=== PATIENT | male | born 1955 | race Caucasian/White ===

== ENCOUNTER 2020-10-14 13:31 | Inpatient (IN) | payer OTHER ==
[2020-10-14] MEDS ORDERED: LORazepam 2 MG/ML SDV VIAL ONE (13:46)
[2020-10-14 14:38] LABS: BASO % 0.2 % (0-2.0); EOS % 7.6 % (0-4.5); HEMATOCRIT 23.1 % (35.4-49); LYMPH % 6.4 % (8-40); MCH 23.2 pg (25.7-33.7); MCHC 30.3 g/dl (32.0-35.9); MEAN CELL VOLUME 76.6 fl (80-96); MEAN PLT VOLUME 7.3 fl (7.5-11.1); NEUT % 76.8 % (42.8-82.8); PLATELET COUNT 265 K/MM3 (134-434); RBC 3.02 M/mm3 (4.00-5.60); RDW 20.8 % (11.9-15.9); WHITE BLOOD COUNT 12.4 K/mm3 (4.0-10.0)
[2020-10-14 15:04] LABS: CHLORIDE 103 mmol/L (98-107); POTASSIUM 3.2 mmol/L (3.5-5.1); SODIUM 138 mmol/L (136-145)
[2020-10-14 15:06] LABS: CALCIUM 9.6 mg/dL (8.5-10.1)
[2020-10-14 15:07] LABS: ALBUMIN 2.2 g/dl (3.4-5.0); ANION GAP 6 MMOL/L (8-16); BLOOD UREA NITROGEN 60.2 mg/dL (7-18); CO2 29 mmol/L (21-32); GLUCOSE,RANDOM 140 mg/dL (74-106)
[2020-10-14 15:10] LABS: CREATININE 2.4 mg/dL (0.55-1.3); SGOT/AST 22 U/L (15-37); SGPT/ALT 30 U/L (13-61)
[2020-10-14 15:11] LABS: BILIRUBIN,TOTAL 0.5 mg/dL (0.2-1); TOT PROT 6.6 g/dl (6.4-8.2)
[2020-10-14 15:13] LABS: ALK PHOS 175 U/L (45-117)
[2020-10-14] MEDS ORDERED: CEFEPIME HCL/D5W 2 GM/50 ML BAG IVPB ONE (15:54)
[2020-10-14] MEDS ORDERED: VANCOMYCIN 1 GM in D5W (PRE-DOCKED) 1,000 MG/250 ML IVPB ONE (15:54)
[2020-10-14] MEDS ORDERED: VANCOMYCIN 1 GRAM (PRE-DOCKED) 1,000 MG/250 ML BAG IVPB ONE (16:08)
[2020-10-14] MEDS ORDERED: CEFEPIME 2 GM/100 ML BAG IVPB ONE (16:47)
[2020-10-14 16:53] LABS: ANISOCYTOSIS 2+; MACROCYTOSIS 0; PLATELET ESTIMATE NORMAL
[2020-10-14 17:24] LABS: EPI CELLS >36 /uL (0-25.1); HYALINE CASTS 5 /uL (0-3.1); URINE APPEARANCE TURBID; URINE BACTERIA 755 /uL (0-1359); URINE BILIRUBIN NEGATIVE (NEGATIVE); URINE COLOR YELLOW; URINE GLUCOSE (UA) NEGATIVE (NEGATIVE); URINE KETONE NEGATIVE (NEGATIVE); URINE LEUK ESTERASE 3+ (NEGATIVE); URINE NITRITE NEGATIVE (NEGATIVE); URINE PROTEIN 1+ (NEGATIVE); URINE RBC 12 /uL (0-23.9); URINE UROBILINOGEN 0.2 mg/dL (0.2-1.0); URINE WBC 4778 /uL (0-25.8)
[2020-10-14] MEDS ORDERED: LORazepam 2 MG/ML SDV VIAL IVPUSH ONE ×2 (17:33→23:45)
[2020-10-14 17:34] LABS: COCAINE, UR NEGATIVE ng/ml (CUTOFF=300)
[2020-10-14 17:35] LABS: METHADONE, UR NEGATIVE ng/ml (CUTOFF=300); OPIATES, URI NEGATIVE ng/ml (CUTOFF=300); PHENCYCLIDINE,URINE NEGATIVE ng/ml (CUTOFF=25)
[2020-10-14 17:45] LABS: URINE AMPHETAMINES NEGATIVE ng/ml (CUTOFF=500); URINE BARBITURATES NEGATIVE ng/ml (CUTOFF=200)
[2020-10-14 17:46] LABS: URINE BENZODIAZEPINES POSITIVE ng/ml (CUTOFF=200)
[2020-10-14 19:03] LABS: INR 1.28 (0.83-1.09); PROTHROMBIN TIME (PATIENT) 15.6 SEC (9.7-13.0)
[2020-10-14 19:06] LABS: ACTIVATED PTT 26.9 SECONDS (25.2-36.5)
[2020-10-14 19:19] LABS: URINE CRYSTALS CALCIUM OXALATE /hpf; YEAST PRESENT (NEGATIVE)
[2020-10-14] MEDS: SODIUM CHLORIDE 1,000 ML IV SCH (19:56)
[2020-10-14] MEDS ORDERED: ACETAMINOPHEN 1000 MG/100 ML VIAL (NON FORMULARY) IVPB PRN (21:07)
[2020-10-14] MEDS ORDERED: POTASSIUM CHLORIDE 20 MEQ PREMIX IVPB 100 ML IVPB ONE (21:10)
[2020-10-14] MEDS: VALPROATE SODIUM 500 MG/5 ML VIAL IVPB SCH (23:20)
[2020-10-15] MEDS ORDERED: diazePAM RECTAL GEL 10 MG KIT (PRE-CALIBRATED) RC ONE (00:35)
[2020-10-15] MEDS ORDERED: MIDAZOLAM IN 0.9 % SOD.CHLORID 100 MG/100 ML PLAST..BAG IVPB SCH (01:00)
[2020-10-15] MEDS ORDERED: ASPIRIN 325 MG TABLET PO ONE (01:00)
[2020-10-15] MEDS ORDERED: MIDAZOLAM 100 MG/100 ML MG IVPB ONE (01:02)
[2020-10-15] MEDS ORDERED: ASPIRIN 300 MG SUPP.RECT PR ONE (01:12)
[2020-10-15] MEDS: KCL 10 MEQ IVPB 10 MEQ/100 ML INFUS.BAG IVPB SCH ×3 (01:47→04:41)
[2020-10-15] MEDS ORDERED: MIDAZOLAM 100 MG/100 ML MG IVPB SCH (01:49)
[2020-10-15 02:00] LABS: BASO % 0.4 % (0-2.0); EOS % 8.9 % (0-4.5); HEMATOCRIT 23.2 % (35.4-49); LYMPH % 8.7 % (8-40); MCH 22.9 pg (25.7-33.7); MCHC 30.1 g/dl (32.0-35.9); MEAN CELL VOLUME 76.2 fl (80-96); MEAN PLT VOLUME 7.5 fl (7.5-11.1); PLATELET COUNT 278 K/MM3 (134-434); RBC 3.05 M/mm3 (4.00-5.60); RDW 20.9 % (11.9-15.9); WHITE BLOOD COUNT 14.5 K/mm3 (4.0-10.0)
[2020-10-15 07:48] LABS: BASO % 0.5 % (0-2.0); EOS % 9.9 % (0-4.5); HEMATOCRIT 24.2 % (35.4-49); HEMOGLOBIN 7.4 GM/dL (11.7-16.9); LYMPH % 8.6 % (8-40); MCH 23.2 pg (25.7-33.7); MCHC 30.6 g/dl (32.0-35.9); MEAN CELL VOLUME 75.7 fl (80-96); MEAN PLT VOLUME 7.4 fl (7.5-11.1); MONO % 7.7 % (3.8-10.2); NEUT % 73.3 % (42.8-82.8); PLATELET COUNT 290 K/MM3 (134-434); RDW 21.1 % (11.9-15.9)
[2020-10-15 09:15] LABS: POTASSIUM 3.8 mmol/L (3.5-5.1)
[2020-10-15 09:17] LABS: ALBUMIN 2.3 g/dl (3.4-5.0); CALCIUM 10.1 mg/dL (8.5-10.1)
[2020-10-15 09:18] LABS: BLOOD UREA NITROGEN 64.1 mg/dL (7-18); MAGNESIUM 2.1 mg/dL (1.8-2.4)
[2020-10-15 09:21] LABS: CREATININE 2.4 mg/dL (0.55-1.3)
[2020-10-15 09:22] LABS: BILIRUBIN,TOTAL 0.6 mg/dL (0.2-1); TOT PROT 6.7 g/dl (6.4-8.2)
[2020-10-15] MEDS ORDERED: DIVALPROEX SODIUM 500 MG TABLET E.C. PO SCH (12:00)
[2020-10-15] MEDS ORDERED: DIVALPROEX SODIUM 125 MG SPRINKLE CAPS PEG SCH (12:00)
[2020-10-15] MEDS: MUPIROCIN 2% TOPICAL OINTMENT FOR DECOLONIZATION NS SCH ×2 (12:29→22:48)
[2020-10-15] MEDS: VALPROATE SODIUM 250 MG/5 ML UNIT DOSE CUP PEG SCH ×2 (12:29→23:01)
[2020-10-15] MEDS: VALPROATE SODIUM 500 MG/5 ML VIAL IVPB SCH (12:59)
[2020-10-15] MEDS ORDERED: LORazepam 2 MG/ML SDV VIAL ONE (13:42)
[2020-10-15] MEDS ORDERED: LORazepam 2 MG/ML SDV VIAL IVPUSH ONE ×2 (14:21→21:46)
[2020-10-15] MEDS: CEFEPIME 2 GM in DEXTROSE 5%-WATER 2 GM/100 ML BAG IVPB SCH (15:25)
[2020-10-15] MEDS: SODIUM CHLORIDE 1,000 ML IV SCH (20:32)
[2020-10-15] MEDS: CHLORHEXIDINE GLUCONATE 4% CLEANSER FOR DECOLONIZATION TP SCH (22:48)
[2020-10-15] MEDS: Lacosamide 200 MG/20 ML VIAL IVPB SCH (22:48)
[2020-10-16] MEDS ORDERED: VANCOMYCIN 1 GM in D5W (PRE-DOCKED) 1,000 MG/250 ML IVPB ONE (02:07)
[2020-10-16] MEDS ORDERED: LORazepam 2 MG/ML SDV VIAL IVPUSH ONE (06:14)
[2020-10-16 07:34] LABS: BASO % 0.7 % (0-2.0); EOS % 14.3 % (0-4.5); HEMATOCRIT 23.2 % (35.4-49); HEMOGLOBIN 7.1 GM/dL (11.7-16.9); LYMPH % 9.7 % (8-40); MCHC 30.6 g/dl (32.0-35.9); MEAN CELL VOLUME 75.2 fl (80-96); MEAN PLT VOLUME 7.4 fl (7.5-11.1); MONO % 6.6 % (3.8-10.2); NEUT % 68.7 % (42.8-82.8); PLATELET COUNT 307 K/MM3 (134-434); RBC 3.08 M/mm3 (4.00-5.60); RDW 20.8 % (11.9-15.9); WHITE BLOOD COUNT 12.5 K/mm3 (4.0-10.0)
[2020-10-16 07:50] LABS: POTASSIUM 3.9 mmol/L (3.5-5.1)
[2020-10-16 08:08] LABS: ALBUMIN 2.2 g/dl (3.4-5.0); BLOOD UREA NITROGEN 66.3 mg/dL (7-18); CALCIUM 9.8 mg/dL (8.5-10.1); MAGNESIUM 2.1 mg/dL (1.8-2.4)
[2020-10-16 08:11] LABS: CREATININE 2.4 mg/dL (0.55-1.3)
[2020-10-16 08:12] LABS: PHOSPHOROUS 3.7 mg/dL (2.5-4.9)
[2020-10-16 08:13] LABS: BILIRUBIN,TOTAL 0.9 mg/dL (0.2-1); TOT PROT 6.8 g/dl (6.4-8.2)
[2020-10-16] MEDS ORDERED: PT OWN MED DRAWER 7, Y5N ONE ×2 (09:39→21:44)
[2020-10-16] MEDS: MUPIROCIN 2% TOPICAL OINTMENT FOR DECOLONIZATION NS SCH ×2 (09:40→21:46)
[2020-10-16] MEDS: VALPROATE SODIUM 250 MG/5 ML UNIT DOSE CUP PEG SCH ×2 (09:41→22:53)
[2020-10-16] MEDS: CEFEPIME 2 GM in DEXTROSE 5%-WATER 2 GM/100 ML BAG IVPB SCH (09:41)
[2020-10-16] MEDS: Lacosamide 200 MG/20 ML VIAL IVPB SCH ×2 (09:45→21:46)
[2020-10-16] MEDS: CHLORHEXIDINE GLUCONATE 4% CLEANSER FOR DECOLONIZATION TP SCH (21:46)
[2020-10-16] MEDS: NYSTATIN 100,000 UNIT/GM TOPICAL CREAM 15 GM TUBE TP SCH (21:46)
[2020-10-17] MEDS ORDERED: PT OWN MED DRAWER 7, Y5N ONE ×2 (04:16→10:58)
[2020-10-17 06:52] LABS: HEMATOCRIT 23.6 % (35.4-49); HEMOGLOBIN 7.2 GM/dL (11.7-16.9); MCH 23.1 pg (25.7-33.7); MCHC 30.6 g/dl (32.0-35.9); MEAN CELL VOLUME 75.4 fl (80-96); MEAN PLT VOLUME 7.4 fl (7.5-11.1); PLATELET COUNT 300 K/MM3 (134-434); RBC 3.12 M/mm3 (4.00-5.60); RDW 20.7 % (11.9-15.9); WHITE BLOOD COUNT 11.3 K/mm3 (4.0-10.0)
[2020-10-17 07:15] LABS: POTASSIUM 3.8 mmol/L (3.5-5.1)
[2020-10-17 07:23] LABS: CALCIUM 9.8 mg/dL (8.5-10.1)
[2020-10-17 07:24] LABS: ALBUMIN 2.2 g/dl (3.4-5.0); BLOOD UREA NITROGEN 63.3 mg/dL (7-18)
[2020-10-17 07:27] LABS: CREATININE 2.4 mg/dL (0.55-1.3)
[2020-10-17 07:28] LABS: BILIRUBIN,TOTAL 0.9 mg/dL (0.2-1)
[2020-10-17 07:29] LABS: TOT PROT 6.9 g/dl (6.4-8.2)
[2020-10-17] MEDS: CEFEPIME 2 GM in DEXTROSE 5%-WATER 2 GM/100 ML BAG IVPB SCH (11:15)
[2020-10-17] MEDS: NYSTATIN 100,000 UNIT/GM TOPICAL CREAM 15 GM TUBE TP SCH ×2 (11:15→21:51)
[2020-10-17] MEDS: MUPIROCIN 2% TOPICAL OINTMENT FOR DECOLONIZATION NS SCH ×2 (11:18→21:51)
[2020-10-17] MEDS: Lacosamide 200 MG/20 ML VIAL IVPB SCH ×2 (11:18→21:51)
[2020-10-17] MEDS: VALPROATE SODIUM 250 MG/5 ML UNIT DOSE CUP PEG SCH ×2 (11:19→21:51)
[2020-10-17] MEDS ORDERED: LORazepam 2 MG/ML SDV VIAL ONE ×3 (12:07→19:21)
[2020-10-17] MEDS ORDERED: LORazepam 2 MG/ML SDV VIAL IVPUSH ONE ×2 (13:17→19:55)
[2020-10-17] MEDS ORDERED: ACETAMINOPHEN 1000 MG/100 ML VIAL (NON FORMULARY) IVPB ONE (19:29)
[2020-10-17] MEDS: CHLORHEXIDINE GLUCONATE 4% CLEANSER FOR DECOLONIZATION TP SCH (21:51)
[2020-10-17] MEDS: COLLAGENASE CLOSTRIDIUM HIST. 30 GRAMS TUBE TP PRN (21:51)
[2020-10-18 07:00] LABS: BASO % 0.1 % (0-2.0); EOS % 7.5 % (0-4.5); HEMATOCRIT 22.7 % (35.4-49); LYMPH % 6.2 % (8-40); MCH 22.9 pg (25.7-33.7); MCHC 30.2 g/dl (32.0-35.9); MEAN PLT VOLUME 7.6 fl (7.5-11.1); MONO % 6.7 % (3.8-10.2); NEUT % 79.5 % (42.8-82.8); PLATELET COUNT 264 K/MM3 (134-434); RBC 2.99 M/mm3 (4.00-5.60); RDW 20.9 % (11.9-15.9); WHITE BLOOD COUNT 14.3 K/mm3 (4.0-10.0)
[2020-10-18 07:05] LABS: HEMOGLOBIN 6.9 GM/dL (11.7-16.9)
[2020-10-18 07:16] LABS: POTASSIUM 3.5 mmol/L (3.5-5.1)
[2020-10-18 07:21] LABS: CALCIUM 10.1 mg/dL (8.5-10.1)
[2020-10-18 07:22] LABS: ALBUMIN 2.1 g/dl (3.4-5.0); BLOOD UREA NITROGEN 65.7 mg/dL (7-18); MAGNESIUM 1.9 mg/dL (1.8-2.4)
[2020-10-18 07:24] LABS: CREATININE 2.3 mg/dL (0.55-1.3)
[2020-10-18 07:25] LABS: PHOSPHOROUS 3.2 mg/dL (2.5-4.9)
[2020-10-18 07:26] LABS: BILIRUBIN,TOTAL 0.7 mg/dL (0.2-1); TOT PROT 6.9 g/dl (6.4-8.2)
[2020-10-18] MEDS ORDERED: PT OWN MED DRAWER 7, Y5N ONE ×3 (09:22→21:30)
[2020-10-18 09:30] LABS: ANISOCYTOSIS 1+; MACROCYTOSIS 0; OVALOCYTE 1+; PLATELET ESTIMATE NORMAL
[2020-10-18] MEDS: MUPIROCIN 2% TOPICAL OINTMENT FOR DECOLONIZATION NS SCH ×2 (10:09→21:41)
[2020-10-18] MEDS: VALPROATE SODIUM 250 MG/5 ML UNIT DOSE CUP PEG SCH ×2 (10:09→21:40)
[2020-10-18] MEDS: CEFEPIME 2 GM in DEXTROSE 5%-WATER 2 GM/100 ML BAG IVPB SCH (10:10)
[2020-10-18] MEDS: Lacosamide 200 MG/20 ML VIAL IVPB SCH ×2 (10:10→21:40)
[2020-10-18] MEDS: NYSTATIN 100,000 UNIT/GM TOPICAL CREAM 15 GM TUBE TP SCH ×2 (11:00→21:40)
[2020-10-18] MEDS ORDERED: ACETAMINOPHEN 650 MG/20.3 ML ORAL SOLUTION (CUPS) PEG PRN (15:21)
[2020-10-18] MEDS ORDERED: ACETAMINOPHEN 325 MG TABLET (FP) ONE (15:22)
[2020-10-18] MEDS: LORazepam 2 MG/ML SDV VIAL IVPUSH PRN ×5 (16:20→23:31)
[2020-10-18] MEDS ORDERED: LORazepam 2 MG/ML SDV VIAL ONE (16:43)
[2020-10-18] MEDS: CHLORHEXIDINE GLUCONATE 4% CLEANSER FOR DECOLONIZATION TP SCH (21:41)
[2020-10-18] MEDS ORDERED: MIDAZOLAM 100 MG/100 ML MG IVPB ONE (23:09)
[2020-10-18] MEDS ORDERED: MIDAZOLAM HCL 2 MG/2 ML SINGLE DOSE VIAL IVPUSH ONE (23:10)
[2020-10-18] MEDS: MIDAZOLAM IN 0.9 % SOD.CHLORID 100 MG/100 ML PLAST..BAG IVPB SCH (23:12)
[2020-10-18] MEDS ORDERED: levETIRAcetam 500 MG/5 ML INJECTION VIAL IVPB ONE (23:16)
[2020-10-19] MEDS ORDERED: PROPOFOL 200 MG/20 ML VIAL IVPUSH ONE (00:22)
[2020-10-19] MEDS ORDERED: MIDAZOLAM HCL 2 MG/2 ML SINGLE DOSE VIAL IVPUSH ONE (00:23)
[2020-10-19] MEDS: clonazePAM 0.5 MG TABLET GT SCH ×3 (04:51→22:36)
[2020-10-19] MEDS: COLLAGENASE CLOSTRIDIUM HIST. 30 GRAMS TUBE TP PRN (06:00)
[2020-10-19 06:52] LABS: BASO % 0.2 % (0-2.0); HEMATOCRIT 24.5 % (35.4-49); HEMOGLOBIN 7.5 GM/dL (11.7-16.9); LYMPH % 3.4 % (8-40); MCH 23.5 pg (25.7-33.7); MCHC 30.5 g/dl (32.0-35.9); MEAN CELL VOLUME 76.9 fl (80-96); MEAN PLT VOLUME 7.4 fl (7.5-11.1); MONO % 5.3 % (3.8-10.2); NEUT % 88.1 % (42.8-82.8); PLATELET COUNT 252 K/MM3 (134-434); RBC 3.19 M/mm3 (4.00-5.60); RDW 19.9 % (11.9-15.9); WHITE BLOOD COUNT 18.2 K/mm3 (4.0-10.0)
[2020-10-19 07:19] LABS: CALCIUM 9.7 mg/dL (8.5-10.1)
[2020-10-19 07:20] LABS: ALBUMIN 1.9 g/dl (3.4-5.0); MAGNESIUM 1.8 mg/dL (1.8-2.4)
[2020-10-19 07:23] LABS: CREATININE 2.3 mg/dL (0.55-1.3)
[2020-10-19 07:24] LABS: BILIRUBIN,TOTAL 0.7 mg/dL (0.2-1); TOT PROT 6.5 g/dl (6.4-8.2)
[2020-10-19 07:25] LABS: PHOSPHOROUS 3.2 mg/dL (2.5-4.9)
[2020-10-19 07:29] LABS: POTASSIUM 3.3 mmol/L (3.5-5.1)
[2020-10-19] MEDS ORDERED: POTASSIUM CHLORIDE 20 MEQ PREMIX IVPB 100 ML IVPB ONE (08:09)
[2020-10-19] MEDS ORDERED: PT OWN MED DRAWER 7, Y5N ONE ×2 (09:06→21:54)
[2020-10-19] MEDS: KCL 10 MEQ IVPB 10 MEQ/100 ML INFUS.BAG IVPB SCH ×2 (09:08→10:01)
[2020-10-19] MEDS: MUPIROCIN 2% TOPICAL OINTMENT FOR DECOLONIZATION NS SCH ×2 (09:10→22:36)
[2020-10-19] MEDS: CEFEPIME 2 GM in DEXTROSE 5%-WATER 2 GM/100 ML BAG IVPB SCH (09:10)
[2020-10-19] MEDS: VALPROATE SODIUM 250 MG/5 ML UNIT DOSE CUP PEG SCH ×2 (09:12→22:36)
[2020-10-19] MEDS: NYSTATIN 100,000 UNIT/GM TOPICAL CREAM 15 GM TUBE TP SCH ×2 (09:13→22:36)
[2020-10-19] MEDS: Lacosamide 200 MG/20 ML VIAL IVPB SCH ×2 (09:13→22:36)
[2020-10-19] MEDS ORDERED: LACTATED RINGERS SOLUTION 1000 ML INFUS.BAG IV ONE ×2 (12:35→13:37)
[2020-10-19] MEDS ORDERED: SODIUM CHLORIDE 0.9% 500 ML INFUS.BAG IV ONE (13:58)
[2020-10-19] MEDS ORDERED: SODIUM CHLORIDE 1,000 ML IV SCH (14:15)
[2020-10-19] MEDS ORDERED: MIDAZOLAM 100 MG/100 ML MG IVPB ONE (19:29)
[2020-10-19] MEDS: MIDAZOLAM IN 0.9 % SOD.CHLORID 100 MG/100 ML PLAST..BAG IVPB SCH ×2 (19:31→22:37)
[2020-10-19] MEDS: CHLORHEXIDINE GLUCONATE 4% CLEANSER FOR DECOLONIZATION TP SCH (22:36)
[2020-10-20 06:20] LABS: ALLENS TEST POSITIVE; ARTERIAL BLD GAS O2 SATURATION 95.3 mmHg (95-98); ARTERIAL BLOOD GAS BASE EXCESS -2.8 mmol/L (-2-2); ARTERIAL BLOOD GAS PO2 80.2 mmHg (80-100); ARTERIAL BLOOD GAS pH 7.345 (7.350-7.450); VENT MODE A/C
[2020-10-20 06:21] LABS: VENT RATE 18
[2020-10-20] MEDS: COLLAGENASE CLOSTRIDIUM HIST. 30 GRAMS TUBE TP PRN (06:35)
[2020-10-20 07:12] LABS: BASO % 0.2 % (0-2.0); EOS % 10.5 % (0-4.5); HEMATOCRIT 26.4 % (35.4-49); LYMPH % 7.8 % (8-40); MCH 23.4 pg (25.7-33.7); MCHC 30.4 g/dl (32.0-35.9); MEAN PLT VOLUME 7.7 fl (7.5-11.1); MONO % 7.1 % (3.8-10.2); NEUT % 74.4 % (42.8-82.8); PLATELET COUNT 252 K/MM3 (134-434); RBC 3.43 M/mm3 (4.00-5.60); RDW 19.9 % (11.9-15.9); WHITE BLOOD COUNT 13.2 K/mm3 (4.0-10.0)
[2020-10-20 07:32] LABS: POTASSIUM 3.8 mmol/L (3.5-5.1)
[2020-10-20 07:34] LABS: CALCIUM 10.2 mg/dL (8.5-10.1)
[2020-10-20 07:35] LABS: ALBUMIN 1.9 g/dl (3.4-5.0); BLOOD UREA NITROGEN 64.4 mg/dL (7-18); MAGNESIUM 1.8 mg/dL (1.8-2.4)
[2020-10-20 07:38] LABS: CREATININE 2.2 mg/dL (0.55-1.3); PHOSPHOROUS 2.9 mg/dL (2.5-4.9)
[2020-10-20 07:39] LABS: BILIRUBIN,TOTAL 0.4 mg/dL (0.2-1); TOT PROT 6.6 g/dl (6.4-8.2)
[2020-10-20] MEDS ORDERED: PT OWN MED DRAWER 7, Y5N ONE ×5 (08:03→21:48)
[2020-10-20] MEDS: MUPIROCIN 2% TOPICAL OINTMENT FOR DECOLONIZATION NS SCH (09:16)
[2020-10-20] MEDS: CEFEPIME 2 GM in DEXTROSE 5%-WATER 2 GM/100 ML BAG IVPB SCH (09:16)
[2020-10-20] MEDS: Lacosamide 200 MG/20 ML VIAL IVPB SCH ×2 (09:16→21:49)
[2020-10-20] MEDS: clonazePAM 0.5 MG TABLET GT SCH ×2 (09:16→21:49)
[2020-10-20] MEDS: NYSTATIN 100,000 UNIT/GM TOPICAL CREAM 15 GM TUBE TP SCH ×2 (09:17→21:49)
[2020-10-20 09:43] LABS: ANISOCYTOSIS 1+; MACROCYTOSIS 0; PLATELET ESTIMATE NORMAL
[2020-10-20] MEDS: VALPROATE SODIUM 250 MG/5 ML UNIT DOSE CUP PEG SCH ×2 (11:19→21:49)
[2020-10-20] MEDS: AMINO ACIDS/PROTEIN HYDROLYS 30 ML LIQUID.PKT PO SCH (17:03)
[2020-10-20] MEDS: CHLORHEXIDINE GLUCONATE 4% CLEANSER FOR DECOLONIZATION TP SCH (21:49)
[2020-10-21 07:42] LABS: BASO % 0.2 % (0-2.0); EOS % 10.1 % (0-4.5); HEMATOCRIT 25.2 % (35.4-49); HEMOGLOBIN 7.8 GM/dL (11.7-16.9); MCH 23.9 pg (25.7-33.7); MCHC 31.1 g/dl (32.0-35.9); MEAN CELL VOLUME 76.9 fl (80-96); MEAN PLT VOLUME 7.6 fl (7.5-11.1); MONO % 7.1 % (3.8-10.2); NEUT % 73.6 % (42.8-82.8); PLATELET COUNT 248 K/MM3 (134-434); RBC 3.28 M/mm3 (4.00-5.60); RDW 20.4 % (11.9-15.9); WHITE BLOOD COUNT 11.6 K/mm3 (4.0-10.0)
[2020-10-21] MEDS ORDERED: PT OWN MED DRAWER 7, Y5N ONE (07:42)
[2020-10-21] MEDS: AMINO ACIDS/PROTEIN HYDROLYS 30 ML LIQUID.PKT PO SCH ×2 (07:57→17:25)
[2020-10-21 08:03] LABS: POTASSIUM 3.8 mmol/L (3.5-5.1)
[2020-10-21 08:05] LABS: CALCIUM 9.8 mg/dL (8.5-10.1)
[2020-10-21 08:06] LABS: BLOOD UREA NITROGEN 66.7 mg/dL (7-18)
[2020-10-21 08:09] LABS: CREATININE 2.1 mg/dL (0.55-1.3)
[2020-10-21] MEDS: NYSTATIN 100,000 UNIT/GM TOPICAL CREAM 15 GM TUBE TP SCH ×2 (09:12→22:40)
[2020-10-21] MEDS: VALPROATE SODIUM 250 MG/5 ML UNIT DOSE CUP PEG SCH ×2 (09:12→22:39)
[2020-10-21] MEDS: Lacosamide 200 MG/20 ML VIAL IVPB SCH ×2 (09:12→22:40)
[2020-10-21] MEDS: CEFEPIME 2 GM in DEXTROSE 5%-WATER 2 GM/100 ML BAG IVPB SCH (09:12)
[2020-10-21] MEDS: clonazePAM 0.5 MG TABLET GT SCH ×2 (09:12→22:40)
[2020-10-21 10:51] LABS: ANISOCYTOSIS 2+; MACROCYTOSIS 0; PLATELET ESTIMATE NORMAL; TARGET CELLS 1+
[2020-10-21] MEDS: MIDAZOLAM 100 MG/100 ML MG IVPB SCH (22:39)
[2020-10-21] MEDS: CHLORHEXIDINE GLUCONATE 4% CLEANSER FOR DECOLONIZATION TP SCH (22:39)
[2020-10-22 10:45] LABS: BASO % 0.3 % (0-2.0); EOS % 7.7 % (0-4.5); HEMATOCRIT 24.9 % (35.4-49); HEMOGLOBIN 7.7 GM/dL (11.7-16.9); LYMPH % 10.4 % (8-40); MCH 23.9 pg (25.7-33.7); MCHC 30.9 g/dl (32.0-35.9); MEAN CELL VOLUME 77.2 fl (80-96); MEAN PLT VOLUME 7.3 fl (7.5-11.1); MONO % 9.9 % (3.8-10.2); NEUT % 71.7 % (42.8-82.8); PLATELET COUNT 210 K/MM3 (134-434); RBC 3.23 M/mm3 (4.00-5.60); WHITE BLOOD COUNT 11.4 K/mm3 (4.0-10.0)
[2020-10-22 11:00] LABS: POTASSIUM 3.9 mmol/L (3.5-5.1)
[2020-10-22 11:02] LABS: ALBUMIN 1.9 g/dl (3.4-5.0); CALCIUM 10.3 mg/dL (8.5-10.1)
[2020-10-22 11:06] LABS: CREATININE 2.2 mg/dL (0.55-1.3); PHOSPHOROUS 2.8 mg/dL (2.5-4.9)
[2020-10-22 11:07] LABS: BILIRUBIN,TOTAL 0.4 mg/dL (0.2-1); TOT PROT 6.8 g/dl (6.4-8.2)
[2020-10-22] MEDS ORDERED: PT OWN MED DRAWER 7, Y5N ONE (11:28)
[2020-10-22] MEDS: clonazePAM 0.5 MG TABLET GT SCH ×2 (11:30→21:54)
[2020-10-22] MEDS: CEFEPIME 2 GM in DEXTROSE 5%-WATER 2 GM/100 ML BAG IVPB SCH (11:30)
[2020-10-22] MEDS: AMINO ACIDS/PROTEIN HYDROLYS 30 ML LIQUID.PKT PO SCH ×2 (11:30→18:19)
[2020-10-22] MEDS: VALPROATE SODIUM 250 MG/5 ML UNIT DOSE CUP PEG SCH ×2 (11:30→21:55)
[2020-10-22] MEDS: NYSTATIN 100,000 UNIT/GM TOPICAL CREAM 15 GM TUBE TP SCH ×2 (11:31→21:55)
[2020-10-22] MEDS: Lacosamide 200 MG/20 ML VIAL IVPB SCH ×2 (11:31→21:55)
[2020-10-22] MEDS: MIDAZOLAM 100 MG/100 ML MG IVPB SCH (11:31)
[2020-10-22 11:46] LABS: ANISOCYTOSIS 1+; MACROCYTOSIS 0; PLATELET ESTIMATE NORMAL
[2020-10-22 14:02] LABS: EPI CELLS 3 /uL (0-25.1); HYALINE CASTS 1 /uL (0-3.1); URINE APPEARANCE CLOUDY; URINE BACTERIA 54 /uL (0-1359); URINE BILIRUBIN NEGATIVE (NEGATIVE); URINE COLOR YELLOW; URINE GLUCOSE (UA) NEGATIVE (NEGATIVE); URINE KETONE NEGATIVE (NEGATIVE); URINE LEUK ESTERASE 3+ (NEGATIVE); URINE NITRITE NEGATIVE (NEGATIVE); URINE PROTEIN 2+ (NEGATIVE); URINE RBC 23 /uL (0-23.9); URINE UROBILINOGEN 0.2 mg/dL (0.2-1.0); URINE WBC 2332 /uL (0-25.8)
[2020-10-22 14:10] LABS: YEAST NON SEEN (NEGATIVE)
[2020-10-23 01:10] LABS: BASO % 0.2 % (0-2.0); EOS % 5.5 % (0-4.5); HEMATOCRIT 28.3 % (35.4-49); HEMOGLOBIN 8.7 GM/dL (11.7-16.9); LYMPH % 8.7 % (8-40); MCH 24.2 pg (25.7-33.7); MCHC 30.6 g/dl (32.0-35.9); MEAN CELL VOLUME 78.9 fl (80-96); MONO % 8.4 % (3.8-10.2); NEUT % 77.2 % (42.8-82.8); PLATELET COUNT 216 K/MM3 (134-434); RBC 3.58 M/mm3 (4.00-5.60); RDW 20.7 % (11.9-15.9); WHITE BLOOD COUNT 12.9 K/mm3 (4.0-10.0)
[2020-10-23 10:14] LABS: BASO % 0.2 % (0-2.0); EOS % 5.5 % (0-4.5); HEMATOCRIT 28.2 % (35.4-49); HEMOGLOBIN 8.7 GM/dL (11.7-16.9); LYMPH % 8.3 % (8-40); MCH 24.3 pg (25.7-33.7); MCHC 30.9 g/dl (32.0-35.9); MEAN CELL VOLUME 78.7 fl (80-96); MEAN PLT VOLUME 7.9 fl (7.5-11.1); MONO % 9.8 % (3.8-10.2); NEUT % 76.2 % (42.8-82.8); PLATELET COUNT 210 K/MM3 (134-434); RBC 3.58 M/mm3 (4.00-5.60); RDW 20.2 % (11.9-15.9); WHITE BLOOD COUNT 13.3 K/mm3 (4.0-10.0)
[2020-10-23 10:42] LABS: POTASSIUM 3.9 mmol/L (3.5-5.1)
[2020-10-23 10:45] LABS: ALBUMIN 1.9 g/dl (3.4-5.0); CALCIUM 10.4 mg/dL (8.5-10.1)
[2020-10-23 10:46] LABS: BLOOD UREA NITROGEN 86.1 mg/dL (7-18)
[2020-10-23 10:49] LABS: CREATININE 2.1 mg/dL (0.55-1.3); PHOSPHOROUS 2.6 mg/dL (2.5-4.9)
[2020-10-23 10:50] LABS: BILIRUBIN,TOTAL 0.4 mg/dL (0.2-1); TOT PROT 7.1 g/dl (6.4-8.2)
[2020-10-23] MEDS ORDERED: PT OWN MED DRAWER 7, Y5N ONE (11:35)
[2020-10-23] MEDS: AMINO ACIDS/PROTEIN HYDROLYS 30 ML LIQUID.PKT PO SCH (11:37)
[2020-10-23] MEDS: VALPROATE SODIUM 250 MG/5 ML UNIT DOSE CUP PEG SCH ×2 (11:37→23:35)
[2020-10-23] MEDS: CEFEPIME 2 GM in DEXTROSE 5%-WATER 2 GM/100 ML BAG IVPB SCH (11:38)
[2020-10-23] MEDS: clonazePAM 0.5 MG TABLET GT SCH (11:41)
[2020-10-23] MEDS: NYSTATIN 100,000 UNIT/GM TOPICAL CREAM 15 GM TUBE TP SCH ×2 (11:41→23:38)
[2020-10-23] MEDS: Lacosamide 200 MG/20 ML VIAL IVPB SCH ×2 (11:41→23:36)
[2020-10-23 11:43] LABS: ANISOCYTOSIS 1+; MACROCYTOSIS 1+; PLATELET ESTIMATE NORMAL
[2020-10-23] MEDS ORDERED: SODIUM CHLORIDE 500 ML IV STA (15:21)
[2020-10-24] MEDS: CEFEPIME 2 GM in DEXTROSE 5%-WATER 2 GM/100 ML BAG IVPB SCH (10:50)
[2020-10-24] MEDS: VALPROATE SODIUM 250 MG/5 ML UNIT DOSE CUP PEG SCH ×2 (10:50→21:03)
[2020-10-24] MEDS: Lacosamide 200 MG/20 ML VIAL IVPB SCH ×2 (10:50→21:03)
[2020-10-24 12:48] LABS: BASO % 0.4 % (0-2.0); EOS % 6.9 % (0-4.5); HEMATOCRIT 28.8 % (35.4-49); HEMOGLOBIN 8.9 GM/dL (11.7-16.9); LYMPH % 7.8 % (8-40); MCH 24.4 pg (25.7-33.7); MCHC 30.9 g/dl (32.0-35.9); MEAN CELL VOLUME 78.7 fl (80-96); MEAN PLT VOLUME 8.2 fl (7.5-11.1); MONO % 10.4 % (3.8-10.2); NEUT % 74.5 % (42.8-82.8); PLATELET COUNT 191 K/MM3 (134-434); RBC 3.66 M/mm3 (4.00-5.60); RDW 20.8 % (11.9-15.9); WHITE BLOOD COUNT 13.1 K/mm3 (4.0-10.0)
[2020-10-24 13:07] LABS: CALCIUM 10.7 mg/dL (8.5-10.1)
[2020-10-24 13:08] LABS: ALBUMIN 1.8 g/dl (3.4-5.0); BLOOD UREA NITROGEN 88.1 mg/dL (7-18); MAGNESIUM 2.1 mg/dL (1.8-2.4)
[2020-10-24 13:11] LABS: BILIRUBIN,TOTAL 0.6 mg/dL (0.2-1); PHOSPHOROUS 2.4 mg/dL (2.5-4.9)
[2020-10-24 14:10] LABS: ANISOCYTOSIS 1+; MACROCYTOSIS 0; OVALOCYTE 1+; PLATELET ESTIMATE DECREASED; TARGET CELLS 1+
[2020-10-24] MEDS: SODIUM CHLORIDE 0.45% 1,000 ML IV SCH (18:08)
[2020-10-24] MEDS: NYSTATIN 100,000 UNIT/GM TOPICAL CREAM 15 GM TUBE TP SCH ×2 (18:09→21:03)
[2020-10-25] MEDS: VALPROATE SODIUM 250 MG/5 ML UNIT DOSE CUP PEG SCH ×2 (10:18→23:10)
[2020-10-25] MEDS: NYSTATIN 100,000 UNIT/GM TOPICAL CREAM 15 GM TUBE TP SCH ×2 (10:19→23:37)
[2020-10-25] MEDS: Lacosamide 200 MG/20 ML VIAL IVPB SCH ×2 (10:19→23:10)
[2020-10-25] MEDS: CEFEPIME 2 GM in DEXTROSE 5%-WATER 2 GM/100 ML BAG IVPB SCH (12:43)
[2020-10-25 14:24] LABS: BLOOD UREA NITROGEN 92.6 mg/dL (7-18)
[2020-10-25] MEDS: SODIUM CHLORIDE 0.45% 1,000 ML IV SCH (16:07)
[2020-10-26 10:00] LABS: POTASSIUM 4.1 mmol/L (3.5-5.1)
[2020-10-26 10:20] LABS: ALBUMIN 1.8 g/dl (3.4-5.0); CALCIUM 11.2 mg/dL (8.5-10.1); MAGNESIUM 2.2 mg/dL (1.8-2.4)
[2020-10-26 10:23] LABS: BILIRUBIN,TOTAL 0.4 mg/dL (0.2-1); PHOSPHOROUS 2.4 mg/dL (2.5-4.9); TOT PROT 7.7 g/dl (6.4-8.2)
[2020-10-26] MEDS: NYSTATIN 100,000 UNIT/GM TOPICAL CREAM 15 GM TUBE TP SCH ×2 (10:29→22:21)
[2020-10-26] MEDS: Lacosamide 200 MG/20 ML VIAL IVPB SCH ×2 (10:29→22:21)
[2020-10-26] MEDS: VALPROATE SODIUM 250 MG/5 ML UNIT DOSE CUP PEG SCH ×2 (10:29→22:21)
[2020-10-26] MEDS: SODIUM CHLORIDE 0.45% 1,000 ML IV SCH (10:30)
[2020-10-26] MEDS: NAPH,MB-DB/K PH,MBDB POWDER PACKET PO SCH (12:12)
[2020-10-26] MEDS: DEXTROSE 5%-WATER - 1,000 ML IV SCH (18:23)
[2020-10-26] MEDS ORDERED: PT OWN MED DRAWER 7, Y5N ONE (21:29)
[2020-10-27] MEDS ORDERED: PT OWN MED DRAWER 7, Y5N ONE (03:48)
[2020-10-27] MEDS: ACETAMINOPHEN 650 MG/20.3 ML ORAL SOLUTION (CUPS) PEG PRN ×2 (03:49→22:04)
[2020-10-27] MEDS ORDERED: METOPROLOL TARTRATE 5 MG/5 ML VIAL IVPB ONE (05:15)
[2020-10-27 09:12] LABS: POTASSIUM 4.1 mmol/L (3.5-5.1)
[2020-10-27 09:22] LABS: ALBUMIN 1.9 g/dl (3.4-5.0); BLOOD UREA NITROGEN 92.9 mg/dL (7-18); MAGNESIUM 2.3 mg/dL (1.8-2.4)
[2020-10-27 09:24] LABS: CREATININE 1.9 mg/dL (0.55-1.3)
[2020-10-27 09:26] LABS: BILIRUBIN,TOTAL 1.2 mg/dL (0.2-1); CALCIUM 11.4 mg/dL (8.5-10.1); TOT PROT 7.6 g/dl (6.4-8.2)
[2020-10-27 09:46] LABS: BASO % 0.2 % (0-2.0); EOS % 2.3 % (0-4.5); HEMATOCRIT 25.1 % (35.4-49); HEMOGLOBIN 7.7 GM/dL (11.7-16.9); LYMPH % 8.1 % (8-40); MCH 24.4 pg (25.7-33.7); MCHC 30.8 g/dl (32.0-35.9); MEAN CELL VOLUME 79.2 fl (80-96); MEAN PLT VOLUME 8.6 fl (7.5-11.1); NEUT % 75.4 % (42.8-82.8); PLATELET COUNT 150 K/MM3 (134-434); RBC 3.17 M/mm3 (4.00-5.60); RDW 21.9 % (11.9-15.9)
[2020-10-27] MEDS: NAPH,MB-DB/K PH,MBDB POWDER PACKET PO SCH (09:48)
[2020-10-27] MEDS: VALPROATE SODIUM 250 MG/5 ML UNIT DOSE CUP PEG SCH ×2 (09:48→22:04)
[2020-10-27] MEDS: DEXTROSE 5%-WATER - 1,000 ML IV SCH ×2 (09:48→18:10)
[2020-10-27] MEDS: Lacosamide 200 MG/20 ML VIAL IVPB SCH ×2 (09:49→22:05)
[2020-10-27] MEDS: NYSTATIN 100,000 UNIT/GM TOPICAL CREAM 15 GM TUBE TP SCH ×2 (09:53→22:06)
[2020-10-27 13:09] LABS: ANISOCYTOSIS 1+; MACROCYTOSIS 1+; OVALOCYTE 1+; PLATELET ESTIMATE DECREASED
[2020-10-27 14:38] LABS: BASO % 0.1 % (0-2.0); EOS % 1.6 % (0-4.5); HEMATOCRIT 25.4 % (35.4-49); HEMOGLOBIN 7.7 GM/dL (11.7-16.9); LYMPH % 6.3 % (8-40); MCH 24.1 pg (25.7-33.7); MCHC 30.5 g/dl (32.0-35.9); MEAN CELL VOLUME 78.9 fl (80-96); MEAN PLT VOLUME 8.8 fl (7.5-11.1); MONO % 14.8 % (3.8-10.2); NEUT % 77.2 % (42.8-82.8); PLATELET COUNT 155 K/MM3 (134-434); RBC 3.21 M/mm3 (4.00-5.60); WHITE BLOOD COUNT 12.4 K/mm3 (4.0-10.0)
[2020-10-27 14:48] LABS: INR 1.58 (0.83-1.09); PROTHROMBIN TIME (PATIENT) 19.2 SEC (9.7-13.0)
[2020-10-27 14:50] LABS: ACTIVATED PTT 29.2 SECONDS (25.2-36.5)
[2020-10-27] MEDS: METOPROLOL TARTRATE 25 MG TABLET (FP) GT SCH ×2 (16:09→22:05)
[2020-10-27 17:04] LABS: ANISOCYTOSIS 3+; MACROCYTOSIS 0; OVALOCYTE 1+; PLATELET ESTIMATE DECREASED; TARGET CELLS 1+
[2020-10-27] MEDS: PANTOPRAZOLE SODIUM 40 MG VIAL IVPUSH SCH (22:06)
[2020-10-27] MEDS ORDERED: diphenhydrAMINE HCL 25 MG CAPSULE (FP) PO ONE (23:04)
[2020-10-27] MEDS ORDERED: FUROSEMIDE 40 MG/4 ML INJECTABLE VIAL IVPUSH ONE (23:04)
[2020-10-28 10:11] LABS: BASO % 0.1 % (0-2.0); EOS % 0.1 % (0-4.5); HEMATOCRIT 28.4 % (35.4-49); HEMOGLOBIN 9.1 GM/dL (11.7-16.9); LYMPH % 8.8 % (8-40); MCH 25.5 pg (25.7-33.7); MEAN CELL VOLUME 79.7 fl (80-96); MEAN PLT VOLUME 8.6 fl (7.5-11.1); MONO % 12.4 % (3.8-10.2); NEUT % 78.6 % (42.8-82.8); PLATELET COUNT 156 K/MM3 (134-434); RBC 3.56 M/mm3 (4.00-5.60); WHITE BLOOD COUNT 14.9 K/mm3 (4.0-10.0)
[2020-10-28 10:30] LABS: POTASSIUM 4.3 mmol/L (3.5-5.1)
[2020-10-28] MEDS: PANTOPRAZOLE SODIUM 40 MG VIAL IVPUSH SCH ×2 (10:32→21:20)
[2020-10-28] MEDS: VALPROATE SODIUM 250 MG/5 ML UNIT DOSE CUP PEG SCH ×2 (10:32→21:21)
[2020-10-28] MEDS: Lacosamide 200 MG/20 ML VIAL IVPB SCH ×2 (10:32→21:21)
[2020-10-28] MEDS: NYSTATIN 100,000 UNIT/GM TOPICAL CREAM 15 GM TUBE TP SCH ×2 (10:32→21:21)
[2020-10-28] MEDS: NAPH,MB-DB/K PH,MBDB POWDER PACKET PO SCH (10:32)
[2020-10-28] MEDS: METOPROLOL TARTRATE 25 MG TABLET (FP) GT SCH ×2 (10:32→21:21)
[2020-10-28 10:49] LABS: BLOOD UREA NITROGEN 99.3 mg/dL (7-18)
[2020-10-28 10:50] LABS: MAGNESIUM 2.3 mg/dL (1.8-2.4)
[2020-10-28 10:52] LABS: BILIRUBIN,TOTAL 1.2 mg/dL (0.2-1); PHOSPHOROUS 4.4 mg/dL (2.5-4.9)
[2020-10-28 10:53] LABS: TOT PROT 7.9 g/dl (6.4-8.2)
[2020-10-28 11:44] LABS: ANISOCYTOSIS 2+; MACROCYTOSIS 0; PLATELET ESTIMATE DECREASED
[2020-10-28] MEDS ORDERED: FUROSEMIDE 40 MG/4 ML INJECTABLE VIAL IVPUSH ONE (17:58)
[2020-10-29] MEDS: ACETAMINOPHEN 650 MG/20.3 ML ORAL SOLUTION (CUPS) PEG PRN (02:04)
[2020-10-29 09:35] LABS: BASO % 0.2 % (0-2.0); EOS % 0.4 % (0-4.5); HEMATOCRIT 28.9 % (35.4-49); HEMOGLOBIN 9.3 GM/dL (11.7-16.9); MCH 25.5 pg (25.7-33.7); MCHC 32.2 g/dl (32.0-35.9); MEAN CELL VOLUME 79.5 fl (80-96); MEAN PLT VOLUME 8.6 fl (7.5-11.1); MONO % 14.3 % (3.8-10.2); NEUT % 74.1 % (42.8-82.8); PLATELET COUNT 175 K/MM3 (134-434); RBC 3.64 M/mm3 (4.00-5.60); RDW 22.2 % (11.9-15.9); WHITE BLOOD COUNT 12.4 K/mm3 (4.0-10.0)
[2020-10-29 09:49] LABS: POTASSIUM 3.9 mmol/L (3.5-5.1)
[2020-10-29 10:00] LABS: PHOSPHOROUS 5.2 mg/dL (2.5-4.9)
[2020-10-29 10:27] LABS: ALBUMIN 1.9 g/dl (3.4-5.0); CALCIUM 10.1 mg/dL (8.5-10.1); MAGNESIUM 2.3 mg/dL (1.8-2.4)
[2020-10-29 10:32] LABS: BILIRUBIN,TOTAL 0.7 mg/dL (0.2-1); CREATININE 2.4 mg/dL (0.55-1.3); TOT PROT 7.8 g/dl (6.4-8.2)
[2020-10-29 10:47] LABS: ANISOCYTOSIS 2+; MACROCYTOSIS 0; OVALOCYTE 1+; PLATELET ESTIMATE NORMAL; TARGET CELLS 1+
[2020-10-29] MEDS: VALPROATE SODIUM 250 MG/5 ML UNIT DOSE CUP PEG SCH ×2 (11:50→22:32)
[2020-10-29] MEDS: NAPH,MB-DB/K PH,MBDB POWDER PACKET PO SCH (11:50)
[2020-10-29] MEDS: PANTOPRAZOLE SODIUM 40 MG VIAL IVPUSH SCH ×2 (11:51→22:32)
[2020-10-29] MEDS: NYSTATIN 100,000 UNIT/GM TOPICAL CREAM 15 GM TUBE TP SCH ×2 (11:51→22:34)
[2020-10-29] MEDS: Lacosamide 200 MG/20 ML VIAL IVPB SCH ×2 (11:53→22:22)
[2020-10-29] MEDS: METOPROLOL TARTRATE 25 MG TABLET (FP) GT SCH ×2 (13:46→22:32)
[2020-10-29 14:30] VITALS: BMI 29.4
[2020-10-29] MEDS ORDERED: SODIUM CHLORIDE 250 ML IV PRN ×2 (15:01→15:05)
[2020-10-29] MEDS: BANATROL PLUS POWDER PACKET PEG SCH (22:32)
[2020-10-30] MEDS: BANATROL PLUS POWDER PACKET PEG SCH ×3 (07:02→22:40)
[2020-10-30 08:58] LABS: BASO % 0.2 % (0-2.0); EOS % 0.4 % (0-4.5); HEMATOCRIT 30.7 % (35.4-49); HEMOGLOBIN 9.8 GM/dL (11.7-16.9); LYMPH % 7.9 % (8-40); MCH 25.7 pg (25.7-33.7); MEAN CELL VOLUME 80.4 fl (80-96); MEAN PLT VOLUME 8.4 fl (7.5-11.1); NEUT % 79.5 % (42.8-82.8); PLATELET COUNT 200 K/MM3 (134-434); RBC 3.81 M/mm3 (4.00-5.60); RDW 22.7 % (11.9-15.9); WHITE BLOOD COUNT 14.7 K/mm3 (4.0-10.0)
[2020-10-30 09:06] LABS: POTASSIUM 4.2 mmol/L (3.5-5.1)
[2020-10-30 09:12] LABS: ALBUMIN 1.9 g/dl (3.4-5.0); CALCIUM 9.7 mg/dL (8.5-10.1)
[2020-10-30 09:13] LABS: MAGNESIUM 2.3 mg/dL (1.8-2.4)
[2020-10-30 09:16] LABS: CREATININE 2.5 mg/dL (0.55-1.3); PHOSPHOROUS 5.4 mg/dL (2.5-4.9)
[2020-10-30 09:17] LABS: TOT PROT 7.8 g/dl (6.4-8.2)
[2020-10-30 09:28] LABS: BILIRUBIN,TOTAL 1.2 mg/dL (0.2-1)
[2020-10-30 09:58] LABS: BLOOD UREA NITROGEN 119.3 mg/dL (7-18)
[2020-10-30] MEDS: PANTOPRAZOLE SODIUM 40 MG VIAL IVPUSH SCH ×2 (11:13→22:39)
[2020-10-30] MEDS: VALPROATE SODIUM 250 MG/5 ML UNIT DOSE CUP PEG SCH ×2 (11:13→22:40)
[2020-10-30] MEDS: NAPH,MB-DB/K PH,MBDB POWDER PACKET PO SCH (11:13)
[2020-10-30] MEDS: METOPROLOL TARTRATE 25 MG TABLET (FP) GT SCH ×2 (11:13→22:40)
[2020-10-30] MEDS: Lacosamide 200 MG/20 ML VIAL IVPB SCH ×2 (11:14→22:39)
[2020-10-30] MEDS: NYSTATIN 100,000 UNIT/GM TOPICAL CREAM 15 GM TUBE TP SCH ×2 (11:18→22:40)
[2020-10-30 11:55] LABS: ANISOCYTOSIS 1+; MACROCYTOSIS 0; PLATELET ESTIMATE NORMAL
[2020-10-30] MEDS ORDERED: SODIUM CHLORIDE 250 ML IV PRN ×2 (15:09→17:27)
[2020-10-31] MEDS: BANATROL PLUS POWDER PACKET PEG SCH ×3 (05:58→21:57)
[2020-10-31] MEDS: ALBUMIN HUMAN 25% 12.5 GM/50 ML VIAL IVPB SCH ×2 (06:21→06:22)
[2020-10-31 09:00] LABS: HEMATOCRIT 29.8 % (35.4-49); HEMOGLOBIN 9.5 GM/dL (11.7-16.9); MCH 25.6 pg (25.7-33.7); MCHC 31.8 g/dl (32.0-35.9); MEAN CELL VOLUME 80.6 fl (80-96); MEAN PLT VOLUME 8.4 fl (7.5-11.1); PLATELET COUNT 175 K/MM3 (134-434); RDW 23.5 % (11.9-15.9); WHITE BLOOD COUNT 16.3 K/mm3 (4.0-10.0)
[2020-10-31 09:19] LABS: POTASSIUM 3.6 mmol/L (3.5-5.1)
[2020-10-31] MEDS: Lacosamide 200 MG/20 ML VIAL IVPB SCH ×2 (10:04→21:59)
[2020-10-31] MEDS: VALPROATE SODIUM 250 MG/5 ML UNIT DOSE CUP PEG SCH ×2 (10:04→21:57)
[2020-10-31] MEDS: METOPROLOL TARTRATE 25 MG TABLET (FP) GT SCH ×2 (10:04→21:57)
[2020-10-31] MEDS: PANTOPRAZOLE SODIUM 40 MG VIAL IVPUSH SCH ×2 (10:04→21:58)
[2020-10-31 10:06] LABS: ALBUMIN 1.9 g/dl (3.4-5.0); CALCIUM 9.2 mg/dL (8.5-10.1)
[2020-10-31] MEDS: NYSTATIN 100,000 UNIT/GM TOPICAL CREAM 15 GM TUBE TP SCH ×2 (10:07→21:57)
[2020-10-31 10:11] LABS: BILIRUBIN,TOTAL 0.8 mg/dL (0.2-1); TOT PROT 7.8 g/dl (6.4-8.2)
[2020-10-31 10:16] LABS: BLOOD UREA NITROGEN 78.2 mg/dL (7-18)
[2020-10-31] MEDS ORDERED: PT OWN MED DRAWER 7, Y5N ONE ×2 (14:15→21:55)
[2020-10-31 18:09] LABS: HEP B CORE AB, TOT Negative (Negative)
[2020-10-31] MEDS ORDERED: QUEtiapine FUMARATE 25 MG TABLET GT ONE ×2 (22:21)
[2020-10-31] MEDS ORDERED: QUEtiapine FUMARATE 25 MG TABLET PO ONE (22:21)
[2020-10-31] MEDS ORDERED: MORPHINE SULFATE 2 MG/ML VIAL IVPUSH ONE (22:22)
[2020-11-01] MEDS ORDERED: MORPHINE SULFATE 2 MG/ML VIAL IVPUSH ONE (04:39)
[2020-11-01] MEDS: BANATROL PLUS POWDER PACKET PEG SCH ×3 (05:41→22:05)
[2020-11-01] MEDS: ACETAMINOPHEN 650 MG/20.3 ML ORAL SOLUTION (CUPS) PEG PRN (05:46)
[2020-11-01] MEDS: VALPROATE SODIUM 250 MG/5 ML UNIT DOSE CUP PEG SCH ×2 (11:32→22:14)
[2020-11-01] MEDS: METOPROLOL TARTRATE 25 MG TABLET (FP) GT SCH ×2 (11:32→22:22)
[2020-11-01] MEDS: PANTOPRAZOLE SODIUM 40 MG VIAL IVPUSH SCH ×2 (11:33→22:14)
[2020-11-01] MEDS: FUROSEMIDE 40 MG/4 ML INJECTABLE VIAL IVPUSH SCH (11:33)
[2020-11-01] MEDS: Lacosamide 200 MG/20 ML VIAL IVPB SCH ×2 (11:35→22:14)
[2020-11-01] MEDS: NYSTATIN 100,000 UNIT/GM TOPICAL CREAM 15 GM TUBE TP SCH ×2 (11:35→22:14)
[2020-11-01] MEDS ORDERED: CEFEPIME HCL/D5W 2 GM/50 ML BAG IVPB SCH (12:30)
[2020-11-01 12:55] LABS: HEMATOCRIT 24.7 % (35.4-49); HEMOGLOBIN 7.7 GM/dL (11.7-16.9); MCH 25.7 pg (25.7-33.7); MCHC 31.2 g/dl (32.0-35.9); MEAN CELL VOLUME 82.3 fl (80-96); MEAN PLT VOLUME 8.1 fl (7.5-11.1); PLATELET COUNT 129 K/MM3 (134-434); RDW 23.4 % (11.9-15.9); WHITE BLOOD COUNT 16.5 K/mm3 (4.0-10.0)
[2020-11-01 13:00] LABS: POTASSIUM 3.2 mmol/L (3.5-5.1)
[2020-11-01 13:01] LABS: CALCIUM 8.8 mg/dL (8.5-10.1); MAGNESIUM 1.7 mg/dL (1.8-2.4)
[2020-11-01 13:05] LABS: CREATININE 1.8 mg/dL (0.55-1.3); PHOSPHOROUS 2.6 mg/dL (2.5-4.9)
[2020-11-01 13:06] LABS: BLOOD UREA NITROGEN 49.7 mg/dL (7-18)
[2020-11-01 13:08] LABS: POTASSIUM 3.2 mmol/L (3.5-5.1)
[2020-11-01] MEDS ORDERED: POTASSIUM CHLORIDE TABS 20 MEQ TABLET.ER (FP) PO ONE (13:09)
[2020-11-01 13:10] LABS: CALCIUM 9.1 mg/dL (8.5-10.1)
[2020-11-01] MEDS ORDERED: MAGNESIUM SULF 50% (8.12 MEQ/2 ML-1 GM VIAL) IVPB ONE (13:10)
[2020-11-01 13:11] LABS: ALBUMIN 1.6 g/dl (3.4-5.0); BLOOD UREA NITROGEN 50.1 mg/dL (7-18)
[2020-11-01 13:13] LABS: CREATININE 1.8 mg/dL (0.55-1.3)
[2020-11-01] MEDS ORDERED: QUEtiapine FUMARATE 50 MG TABLET PO PRN (13:13)
[2020-11-01 13:15] LABS: BILIRUBIN,TOTAL 0.6 mg/dL (0.2-1)
[2020-11-01] MEDS ORDERED: QUEtiapine FUMARATE 25 MG TABLET PO PRN (13:31)
[2020-11-01] MEDS ORDERED: POTASSIUM CHLORIDE ORAL LIQUID 20 MEQ/15 ML PO ONE (13:35)
[2020-11-01] MEDS ORDERED: DEXTROSE 5%-WATER 100 ML IVPB ONE (16:16)
[2020-11-01] MEDS ORDERED: CEFEPIME HCL 1 GM VIAL (RESTRICTED TO ID) ONE (16:16)
[2020-11-01] MEDS: CEFEPIME 1 GM in DEXTROSE 5%-WATER 1 GM/100 ML BAG IVPB SCH (18:02)
[2020-11-01] MEDS: VANCOMYCIN 1 GM in D5W (PRE-DOCKED) 1,000 MG/250 ML IVPB SCH (20:00)
[2020-11-02] MEDS: BANATROL PLUS POWDER PACKET PEG SCH ×3 (05:38→21:27)
[2020-11-02 11:09] LABS: HEMATOCRIT 25.2 % (35.4-49); MCHC 31.8 g/dl (32.0-35.9); MEAN CELL VOLUME 81.8 fl (80-96); MEAN PLT VOLUME 7.9 fl (7.5-11.1); PLATELET COUNT 113 K/MM3 (134-434); RBC 3.08 M/mm3 (4.00-5.60); RDW 23.3 % (11.9-15.9); WHITE BLOOD COUNT 17.7 K/mm3 (4.0-10.0)
[2020-11-02 11:15] LABS: POTASSIUM 3.8 mmol/L (3.5-5.1)
[2020-11-02 11:18] LABS: ALBUMIN 1.6 g/dl (3.4-5.0); BLOOD UREA NITROGEN 56.8 mg/dL (7-18); CALCIUM 9.1 mg/dL (8.5-10.1)
[2020-11-02 11:19] LABS: MAGNESIUM 2.3 mg/dL (1.8-2.4)
[2020-11-02 11:21] LABS: CREATININE 2.3 mg/dL (0.55-1.3)
[2020-11-02 11:22] LABS: PHOSPHOROUS 2.7 mg/dL (2.5-4.9)
[2020-11-02 11:23] LABS: TOT PROT 6.8 g/dl (6.4-8.2)
[2020-11-02 11:25] LABS: BILIRUBIN,TOTAL 0.9 mg/dL (0.2-1)
[2020-11-02] MEDS: VALPROATE SODIUM 250 MG/5 ML UNIT DOSE CUP PEG SCH ×2 (11:34→21:27)
[2020-11-02] MEDS: PANTOPRAZOLE SODIUM 40 MG VIAL IVPUSH SCH ×2 (11:35→21:12)
[2020-11-02] MEDS: Lacosamide 200 MG/20 ML VIAL IVPB SCH ×2 (11:39→21:15)
[2020-11-02] MEDS: NYSTATIN 100,000 UNIT/GM TOPICAL CREAM 15 GM TUBE TP SCH ×2 (11:39→21:27)
[2020-11-02] MEDS ORDERED: PT OWN MED DRAWER 7, Y5N ONE (12:32)
[2020-11-02] MEDS ORDERED: CEFEPIME HCL 1 GM VIAL (RESTRICTED TO ID) ONE (13:14)
[2020-11-02] MEDS ORDERED: DEXTROSE 5%-WATER 100 ML IVPB ONE (13:14)
[2020-11-02] MEDS: CEFEPIME 1 GM in DEXTROSE 5%-WATER 1 GM/100 ML BAG IVPB SCH (13:20)
[2020-11-02] MEDS: METOPROLOL TARTRATE 25 MG TABLET (FP) GT SCH ×2 (13:20→21:26)
[2020-11-02] MEDS: FUROSEMIDE 40 MG/4 ML INJECTABLE VIAL IVPUSH SCH (13:20)
[2020-11-02 14:01] LABS: BASO % 0.3 % (0-2.0); EOS % 0.8 % (0-4.5); HEMATOCRIT 26.4 % (35.4-49); HEMOGLOBIN 8.2 GM/dL (11.7-16.9); LYMPH % 3.3 % (8-40); MCH 25.6 pg (25.7-33.7); MCHC 31.1 g/dl (32.0-35.9); MEAN CELL VOLUME 82.3 fl (80-96); MEAN PLT VOLUME 8.3 fl (7.5-11.1); NEUT % 87.6 % (42.8-82.8); PLATELET COUNT 98 K/MM3 (134-434); RBC 3.21 M/mm3 (4.00-5.60); RDW 23.6 % (11.9-15.9); WHITE BLOOD COUNT 19.4 K/mm3 (4.0-10.0)
[2020-11-02 14:49] LABS: ANISOCYTOSIS 3+; MACROCYTOSIS 1+
[2020-11-02] MEDS: VANCOMYCIN 1 GM in D5W (PRE-DOCKED) 1,000 MG/250 ML IVPB SCH (15:32)
[2020-11-02 19:06] LABS: HEP B CORE AB, TOT Negative (Negative)
[2020-11-03] MEDS: BANATROL PLUS POWDER PACKET PEG SCH ×3 (06:45→22:14)
[2020-11-03] MEDS: METOPROLOL TARTRATE 25 MG TABLET (FP) GT SCH ×3 (06:53→22:14)
[2020-11-03 09:30] LABS: BASO % 0.1 % (0-2.0); EOS % 1.1 % (0-4.5); HEMATOCRIT 25.8 % (35.4-49); LYMPH % 2.7 % (8-40); MCH 25.6 pg (25.7-33.7); MCHC 31.1 g/dl (32.0-35.9); MEAN CELL VOLUME 82.3 fl (80-96); MEAN PLT VOLUME 8.5 fl (7.5-11.1); MONO % 7.2 % (3.8-10.2); NEUT % 88.9 % (42.8-82.8); PLATELET COUNT 89 K/MM3 (134-434); RBC 3.13 M/mm3 (4.00-5.60); RDW 23.4 % (11.9-15.9); WHITE BLOOD COUNT 17.6 K/mm3 (4.0-10.0)
[2020-11-03 09:38] LABS: POTASSIUM 3.7 mmol/L (3.5-5.1)
[2020-11-03 09:52] LABS: ALBUMIN 1.6 g/dl (3.4-5.0)
[2020-11-03] MEDS ORDERED: CEFEPIME HCL 1 GM VIAL (RESTRICTED TO ID) ONE (09:53)
[2020-11-03] MEDS ORDERED: DEXTROSE 5%-WATER 100 ML IVPB ONE (09:53)
[2020-11-03 09:55] LABS: BILIRUBIN,TOTAL 0.6 mg/dL (0.2-1); BLOOD UREA NITROGEN 67.8 mg/dL (7-18); CALCIUM 9.2 mg/dL (8.5-10.1)
[2020-11-03 09:56] LABS: MAGNESIUM 2.2 mg/dL (1.8-2.4)
[2020-11-03 09:57] LABS: PHOSPHOROUS 2.7 mg/dL (2.5-4.9)
[2020-11-03 09:59] LABS: CREATININE 2.8 mg/dL (0.55-1.3)
[2020-11-03] MEDS: CEFEPIME 1 GM in DEXTROSE 5%-WATER 1 GM/100 ML BAG IVPB SCH (09:59)
[2020-11-03] MEDS: VALPROATE SODIUM 250 MG/5 ML UNIT DOSE CUP PEG SCH ×2 (10:00→22:14)
[2020-11-03] MEDS: FUROSEMIDE 40 MG/4 ML INJECTABLE VIAL IVPUSH SCH (10:00)
[2020-11-03] MEDS: NYSTATIN 100,000 UNIT/GM TOPICAL CREAM 15 GM TUBE TP SCH ×2 (10:02→22:14)
[2020-11-03] MEDS: PANTOPRAZOLE SODIUM 40 MG VIAL IVPUSH SCH ×2 (10:03→22:14)
[2020-11-03] MEDS: VANCOMYCIN 1 GM in D5W (PRE-DOCKED) 1,000 MG/250 ML IVPB SCH (12:04)
[2020-11-03] MEDS: Lacosamide 200 MG/20 ML VIAL IVPB SCH ×2 (13:05→22:15)
[2020-11-04] MEDS: BANATROL PLUS POWDER PACKET PEG SCH ×3 (06:24→23:08)
[2020-11-04] MEDS: VALPROATE SODIUM 250 MG/5 ML UNIT DOSE CUP PEG SCH ×2 (09:20→23:09)
[2020-11-04] MEDS: PANTOPRAZOLE SODIUM 40 MG VIAL IVPUSH SCH ×2 (09:20→23:09)
[2020-11-04] MEDS: FUROSEMIDE 40 MG/4 ML INJECTABLE VIAL IVPUSH SCH (09:20)
[2020-11-04] MEDS: METOPROLOL TARTRATE 25 MG TABLET (FP) GT SCH (09:20)
[2020-11-04] MEDS: NYSTATIN 100,000 UNIT/GM TOPICAL CREAM 15 GM TUBE TP SCH ×2 (09:20→23:09)
[2020-11-04] MEDS ORDERED: DEXTROSE 5%-WATER 100 ML IVPB ONE (09:27)
[2020-11-04] MEDS ORDERED: CEFEPIME HCL 1 GM VIAL (RESTRICTED TO ID) ONE (09:27)
[2020-11-04] MEDS: CEFEPIME 1 GM in DEXTROSE 5%-WATER 1 GM/100 ML BAG IVPB SCH (09:28)
[2020-11-04 09:51] VITALS: BP 149/66; PULSE 95; TEMP 97.6
[2020-11-04] MEDS ORDERED: MORPHINE SULFATE/0.9% NACL/PF 100 MG/100 ML BAG IVPB SCH (11:00)
[2020-11-04] MEDS: Lacosamide 200 MG/20 ML VIAL IVPB SCH ×2 (11:17→23:09)
[2020-11-04] MEDS ORDERED: PCA PUMP NR ONE (11:35)
[2020-11-04] MEDS ORDERED: morphine SULFATE 4 MG/ML VIAL IVPUSH ONE (12:00)
[2020-11-04] MEDS: LORazepam 2 MG/ML SDV VIAL IVPUSH PRN ×2 (18:50→23:12)
[2020-11-05] MEDS: BANATROL PLUS POWDER PACKET PEG SCH (06:25)
== END 2020-11-05 04:22 | disposition expired | DRG 870 ==
LOC: JER 13:31 → JERBED 17:01 → JICU 23:01 → J5S 10-21 23:57
PROVIDERS: ADMIT Internal Medicine
PROC: 5A1955Z Respiratory Ventilation, Greater than 96 Consecutive Hours (ICD-10-PCS; 2020-10-14)
PROC: 0JPTXXZ Removal of Tunneled Vascular Access Device from Trunk Subcutaneous Tissue and Fascia, External Approach (ICD-10-PCS; principal; 2020-10-27)
PROC: 2W15X6Z Compression of Back using Pressure Dressing (ICD-10-PCS; 2020-10-27)
PROC: 5A1D70Z Performance of Urinary Filtration, Intermittent, Less than 6 Hours Per Day (ICD-10-PCS; 2020-10-30)
PROC: 5A1D70Z Performance of Urinary Filtration, Intermittent, Less than 6 Hours Per Day (ICD-10-PCS; 2020-10-31)
DX: A41.89 Other specified sepsis (principal); L89.154 Pressure ulcer of sacral region, stage 4; J96.01 Acute respiratory failure with hypoxia; N18.6 End stage renal disease; J69.0 Pneumonitis due to inhalation of food and vomit; J96.02 Acute respiratory failure with hypercapnia; N17.9 Acute kidney failure, unspecified; I13.2 Hypertensive heart and chronic kidney disease with heart failure and with stage 5 chronic kidney disease, or end stage renal disease; I50.22 Chronic systolic (congestive) heart failure; E87.0 Hyperosmolality and hypernatremia; N39.0 Urinary tract infection, site not specified; E87.2 Acidosis; J95.851 Ventilator associated pneumonia; I25.10 Atherosclerotic heart disease of native coronary artery without angina pectoris; G40.901 Epilepsy, unspecified, not intractable, with status epilepticus; E78.5 Hyperlipidemia, unspecified; F39 Unspecified mood [affective] disorder; D72.829 Elevated white blood cell count, unspecified; E87.6 Hypokalemia; E11.22 Type 2 diabetes mellitus with diabetic chronic kidney disease; I48.91 Unspecified atrial fibrillation; D64.9 Anemia, unspecified; Z86.718 Personal history of other venous thrombosis and embolism; Z86.73 Personal history of transient ischemic attack (TIA), and cerebral infarction without residual deficits; I25.2 Old myocardial infarction; E87.70 Fluid overload, unspecified; Z99.2 Dependence on renal dialysis; Z93.0 Tracheostomy status; Z93.1 Gastrostomy status; Z95.810 Presence of automatic (implantable) cardiac defibrillator; Z74.01 Bed confinement status; Y83.8 Other surgical procedures as the cause of abnormal reaction of the patient, or of later complication, without mention of misadventure at the time of the procedure
CPT/HCPCS: 36415; 36430; 36511; 36556; 36600; 70450-TC; 71045-TC-FY; 71250-TC; 80048; 80053; 80074; 80164; 80307; 81003; 82272; 82310; 82565; 82607; 82728; 82746; 82803; 82962; 83540; 83550; 83605; 83615; 83735; 83970; 84100; 84146; 84300; 84443; 84466; 84484; 85025; 85027; 85045; 85379; 85610; 85730; 86140; 86704; 86705; 86706; 86707; 86708; 86709; 86803; 86850; 86870; 86880; 86900; 86901; 86902; 86922; 87040; 87070; 87076; 87077; 87086; 87186; 87205; 87324; 87340; 87449; 93005; 93010; 93306-TC; 93880-TC; 93971; 94002; 99291; C9803; J0131; P9038; P9058; U0003